=== PATIENT | male | born 1950 | race African-American/Black ===

== ENCOUNTER → 2016-10-31 | Outpatient (CLI) | payer OTHER ==
[~2016-10-31] MED LIST: AMLO10TA2 PO; CELE200C PO; DOXA4TAB3 PO; METF500T4 PO
[2016-10-31 09:44] LABS: BASO # 0.1 x10^3/uL (0.0-0.2); BASO % 1 % (0-3); EOS % 8 % (0-3); LYMPH # 3.3 x10^3/uL (1.0-4.8); LYMPH % 40 % (24-48); MEAN CORPUSCULAR HEMOGLOBIN 28 pg (25-35); MEAN CORPUSCULAR HGB CONC 34 g/dL (31-37); MEAN CORPUSCULAR VOLUME 82 fL (79-100); MONO % 7 % (0-9); NEUT % 45 % (31-73); PLATELET COUNT 232 x10^3/uL (140-400); RED BLOOD COUNT 5.36 x10^6/uL (4.30-5.70); RED CELL DISTRIBUTION WIDTH 14.1 % (11.5-14.5)
[2016-10-31 09:52] LABS: WHITE BLOOD COUNT 8.4 x10^3/uL (4.0-11.0)
[2016-10-31 10:09] LABS: ALBUMIN 3.8 g/dL (3.4-5.0); ALBUMIN/GLOBULIN RATIO 0.7 (1.0-1.7); CALCIUM 8.7 mg/dL (8.5-10.1); CREATININE 1.3 mg/dL (0.7-1.3); GFR 66.6; TOTAL PROTEIN 9.3 g/dL (6.4-8.2)
[2016-10-31 10:58] LABS: CHOLESTEROL/HDL RATIO 3.7
== END | disposition home or self-care (01) ==
LOC: LAB 09:05
PROVIDERS: ATTEND Family Medicine
DX: Z12.5 Encounter for screening for malignant neoplasm of prostate (principal); I10 Essential (primary) hypertension; E11.42 Type 2 diabetes mellitus with diabetic polyneuropathy; E78.5 Hyperlipidemia, unspecified
CPT/HCPCS: 80053; 80061; 85027; G0103; 36415; 83036

== ENCOUNTER → 2017-06-08 | Outpatient (CLI) | payer MEDICARE, OTHER | END | disposition home or self-care (01) | LOC: RAD 10:56 | DX: J44.9 Chronic obstructive pulmonary disease, unspecified (principal); J45.40 Moderate persistent asthma, uncomplicated | CPT/HCPCS: 71046 ==

== ENCOUNTER → 2017-12-10 | Outpatient (CLI) | payer MEDICARE, OTHER ==
[~2017-12-10] MED LIST changes: -AMLO10TA2 PO; +AMLO10TA6 PO; +METF500T16 PO; -METF500T4 PO
--- NOTE | 2017-12-10 13:49 | RAD ---
Left shoulder, 3 views, 12/10/2017: HISTORY: Shoulder pain There is moderate degenerative change at the AC joint. No fracture or dislocation is identified. The periarticular soft tissues are unremarkable. IMPRESSION: 1. Moderate degenerative change at the AC joint. 2. No acute bony abnormality is detected. Electronically signed by: Luis A Dorantes MD (12/10/2017 1:46 PM) [facility]
== END | disposition home or self-care (01) ==
LOC: RAD 09:06
PROVIDERS: ATTEND Family Medicine
DX: M19.012 Primary osteoarthritis, left shoulder (principal); I10 Essential (primary) hypertension; E11.42 Type 2 diabetes mellitus with diabetic polyneuropathy; E78.5 Hyperlipidemia, unspecified; J45.40 Moderate persistent asthma, uncomplicated; J44.9 Chronic obstructive pulmonary disease, unspecified; Z86.73 Personal history of transient ischemic attack (TIA), and cerebral infarction without residual deficits; Z83.71 Family history of colonic polyps; Z87.891 Personal history of nicotine dependence
CPT/HCPCS: 73030

== ENCOUNTER → 2018-01-29 | Outpatient (CLI) | payer OTHER ==
--- NOTE | 2018-01-29 14:29 | RAD ---
MR of the left shoulder Indication: Left shoulder pain for 6 months after a fall. Technique: Standard multiplanar sequences are obtained. Findings: Artifact: Moderate motion degradation. Acromioclavicular joint: Degenerative, with undersurface osteophytes and mass effect. Rotator cuff: * Supraspinatus-infraspinatus tendon: Full-thickness tear of the supraspinatus tendon measures 2 cm AP diameter with about 3 cm retraction. * Subscapularis tendon: Intact * Muscle bulk: Severe atrophy and volume loss particularly of the supraspinatus. * Subacromial subdeltoid bursa: Small effusion. Fluid: No significant glenohumeral effusion. Glenohumeral cartilage: Mildly degenerative. Labrum: Superior labral blunting. No labral detachment. Biceps tendon: Appears intact. Bones: No lesion or acute fracture. Soft tissue: No acute findings. Impression: 1. Moderate retracted supraspinatus tendon tear with severe at atrophy. 2. Superior labral blunting without labral detachment. Electronically signed by: Richard Daugherty MD (01/29/2018 2:26 PM) [facility]
== END | disposition home or self-care (01) ==
LOC: MRI 12:56
PROVIDERS: ATTEND Family Medicine
DX: M75.102 Unspecified rotator cuff tear or rupture of left shoulder, not specified as traumatic (principal); M62.512 Muscle wasting and atrophy, not elsewhere classified, left shoulder; M25.412 Effusion, left shoulder; M25.712 Osteophyte, left shoulder
CPT/HCPCS: 73221

== ENCOUNTER → 2018-03-07 | Outpatient (CLI) | payer OTHER ==
--- NOTE | 2018-03-07 16:44 | RAD ---
DUPLEX SONOGRAPHY OF THE PERIPHERAL ARTERIAL SYSTEM OF [ ] Clinical indications: Bilateral leg pain. Peripheral arterial disease I73.9. Findings: Duplex sonography of the peripheral arterial system of both lower extremities including denise scale and color flow and spectral waveform analysis was performed.Triphasic waveforms are seen. Neither peroneal artery could be visualized. No flow-limiting stenosis or occlusive disease is seen elsewhere. The measurements were performed using the NASCET criteria. Peak systolic flow velocities are as follows: Right leg: common femoral artery- 125 cm/sec, profunda femoral artery -107 cm/sec, proximal superficial femoral artery -181 cm/sec, mid superficial femoral artery -105 cm/sec, distal superficial femoral artery- 101 cm/sec, popliteal artery -67 cm/sec, proximal posterior tibial artery- 64 cm/sec, distal posterior tibial artery- 67 cm/sec, peroneal artery- 0 cm/sec, anterior tibial artery- 62 cm/sec, dorsalis pedis artery -84 cm/sec. Left leg: common femoral artery- 118 cm/sec, profunda femoral artery -116 cm/sec, proximal superficial femoral artery- 141cm/sec, mid superficial femoral artery- 93 cm/sec, distal superficial femoral artery- 1 cm/sec, popliteal artery -76 cm/sec, proximal posterior tibial artery -57 cm/sec, distal posterior tibial artery- 63 cm/sec, peroneal artery -0 cm/sec, anterior tibial artery -65 cm/sec, dorsalis pedis artery- 71 cm/sec. Impression: Neither peroneal artery could be visualized and therefore could be occluded within both calves. No other occlusive disease or flow-limiting stenosis is evident otherwise. Electronically signed by: Nathanael Tuttle MD (03/07/2018 4:40 PM) [place] [id number]
== END | disposition home or self-care (01) ==
LOC: US 13:05
PROVIDERS: ATTEND Family Medicine
DX: I73.9 Peripheral vascular disease, unspecified (principal)
CPT/HCPCS: 93925

== ENCOUNTER → 2020-06-03 | Outpatient (CLI) | payer OTHER ==
[~2020-06-03] MED LIST changes: +AMLO-187 PO; -AMLO10TA6 PO
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
== END ==
LOC: KCIC MRI 12:53
PROVIDERS: ATTEND Family Medicine
DX: I69.393 Ataxia following cerebral infarction (principal); R41.81 Age-related cognitive decline
CPT/HCPCS: 70250; 70551